=== PATIENT | female | born 1985 | race Caucasian/White ===

== ENCOUNTER 2024-07-05 14:10 | Emergency (ER) | payer BC, OTHER ==
[2024-07-05] MEDS: Ketorolac 30 MG/ML SDV IM ONE (15:01)
[2024-07-05] MEDS: Ondansetron 4 MG Tab.DIS PO ONE (15:26)
== END 2024-07-05 16:30 | disposition home or self-care (01) ==
LOC: JP.ED 14:10
DX: N20.0 Calculus of kidney (principal); Z79.84 Long term (current) use of oral hypoglycemic drugs; Z79.899 Other long term (current) drug therapy; Z88.8 Allergy status to other drugs, medicaments and biological substances
CPT/HCPCS: 74176; 96372; 99284; J1885; Q0162; 99283